=== PATIENT | male | born 1960 | race Caucasian/White ===

== ENCOUNTER 2020-03-23 14:10 | Emergency (ER) | payer MEDICARE, MEDICAID, SELFPAY ==
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
[2020-03-23 14:25] VITALS: BP 146/85; PULSE 75; RESP 18; TEMP 36.6; O2SAT 99
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
--- NOTE | 2020-03-23 15:10 | PC.NURSE ---
Dr. Baugh speaking with Dr. Tao with [facility].
[2020-03-23] MEDS: CEPHALEXIN 500 MG CAPSULE PO (15:23)
== END 2020-03-23 15:35 | disposition home or self-care (01) ==
PROVIDERS: Emergency Provider Family Medicine
DX: S62.630B Displaced fracture of distal phalanx of right index finger, initial encounter for open fracture (principal); W22.8XXA Striking against or struck by other objects, initial encounter
CPT/HCPCS: 73140; 99283; A9270

== ENCOUNTER 2020-03-26 00:20 | Day surgery (SDC) | payer MEDICARE, MEDICAID, SELFPAY ==
[2020-03-24 15:48] VITALS: BMI 32.3
--- NOTE | ~2020-03-26 | XR_ITS ---
XR surgery orthopedic 03/26/2020 13:50 Indication: ORIF right index finger Procedure: 4 views right second finger Comparison: 03/23/2020 Findings: There has been interval placement of a surgical pin transfixing the second distal phalanx e xtending into the middle phalanx. Comminuted fracture distal aspect of the distal phalanx is an near- anatomic alignment. There is overlying soft tissue laceration. No foreign bodies. Impression: 1: Near-anatomic alignment of comminuted fracture right second distal phalanx status post internal fi xation with single fixation pin. Reviewed, dictated and finalized at location A. Impression: 1: Near-anatomic alignment of comminuted fracture right second distal phalanx s tatus post internal fixation with single fixation pin.
--- NOTE | 2020-03-26 11:12 | WPDANESEPPF ---
Anes - Initial Pre Proc Eval Procedure: Operation Date: 03/26/20 13:00 Proposed Procedures p Washout Repair And Nail Bed Repair Open Reduction Internal Fixation Right Index Finger Distal Phalanx - Abebe Tao MD Date/Time: 03/26/20 11:12 Surgeon: Abebe Tao MD Pre Op Diagnosis: Right Index Finger Fracture Patient Data Age: 59 Gender: M Height: 6 ft Weight: 108 kg Allergies Allergy/AdvReac Type Severity Reaction Status Date / Time No Known Allergies Allergy Verified 03/24/20 15:45 Home Medications Medication Instructions Recorded Confirmed Type lorazepam 0.5 mg tablet 0.25 mg PO Q6H PRN #20 tablet 10/30/19 03/26/20 Rx chlorthalidone 25 mg tablet 25 mg PO DAILY #30 tablet 03/09/20 03/26/20 Rx lisinopril 20 mg tablet 20 mg PO DAILY #30 tablet 03/09/20 03/26/20 Rx cephalexin 500 mg PO Q6H #28 cap 03/23/20 03/26/20 Rx Patient hx anesthesia problems: none Family hx anesthesia problems: none PMFSH Social History Social History Social History: Mr. Lou lives in [place], [place] with a roommate. He designates his friend, Emre, as his surrogate decision maker and he wishes to be a full code. He smoked up to 2 and half packs of cigarettes per day for 16 years and quit when he was diagnosed with throat cancer. He drinks 5-6 beers most days of the week. He denies drug use. He is on disability. His primary care provider is Dr. Ja Guidry. Smoking packs per day: 2.5 Smoking cigarettes per day: 50.0 Years smoked: 16 Smoking pack-years: 40.00 Alcohol intake: current Drinks per week: 35 Gender identity (if verbalized by the patient): Male Spiritual care concerns: No Anes - Eval Final PreProcedure Day of Procedure 03/26/20 11:12 Patient weight: overweight Heart: regular rate and rhythm Lungs: clear to auscultation Airway: Mallampati scale (h/o of laryngectomy) class II Neurological: alert and oriented Last oral intake: >/= 8 hours ASA classification: III Emergent: no Anesthetic plan: proceed Anesthesia type and monitoring: general GIVS and standard monitoring Informed Consent: The patient's anesthetic plan and its attendant risks and benefits were discussed with the patient/family/POA. Questions were solicited and answers provided to the satisfaction of the patient/family/POA.
[2020-03-26] MEDS: LACTATED RINGERS 1,000 ML 30 ML IV CONT (12:12)
[2020-03-26 12:22] VITALS: BP 114/74; PULSE 81; RESP 18; TEMP 37.2; O2SAT 99
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
--- NOTE | 2020-03-26 12:56 | PM.PROC ---
Procedure Note - Detailed Date of procedure: 03/26/20 Pre-op diagnosis: Right Index Finger Fracture Right index finger open wound Post-op diagnosis: same Procedure performed: 1. ORIF right index finger. 2. Nail bed repair right index finger. 3. 2cm laceration repair right index finger. 4. Washout right index finger. Description of procedure: He was marked in the preoperative holding area with his verification. We had obtained consent about the risks of COVID-19. He was taken to the operating room placed supine on the operating room table. Anesthesia was provided by anesthesiology. He was prepped and draped in a standard sterile fashion. 1% lidocaine and 0.25% Marcaine with epinephrine was used to provide a digital block. I was able to proceed without using tourniquet. I removed the nail plate from the nail bed. Completely clean this debrided. Washed with saline. The wound was explored and I copiously irrigated with normal saline solution and completely debrided. Fluoroscopy was used any did appear to have a distal fragment. Retrograde I crossed a 0.035 K-wire and then reduced the fracture as best as possible as there was the missing segment. This was then crossed proximally and then across the DIP joint in full extension. I verified positioning on fluoroscopy. The tissue was in very poor repair and I was able to repair the skin for 2 cm with 4-0 nylon and 5 0 chromic. This was reapproximating was still a small open area. I did a nail bed repair using 5 0 chromic. The nail was placed back into the eponychial fold and sutured into place with a 4-0 nylon. Xeroform, fluffs were used and lightly applied clean. I then used a metal finger splint with the digit in extension and placed a lightly applied 1 in Coban. He tolerated the procedure well. Awoke and taken to the PACU without difficulty. All instrument sponge counts were correct at the end the case.. Anesthesia: MAC Surgeon: Abebe Tao MD Estimated blood loss (mL): 1 Drains: No Packing: No Pathology: none sent Complications: No immediate complications Condition: stable Disposition: PACU
[2020-03-26] MEDS: ceFAZolin 2 GM/D5W 50 ML 2 GM/50 ML BAG IVPB (13:07)
--- NOTE | 2020-03-26 13:07 | SUR.PREOP ---
1245- asked Dr. Zarate if pt needed a repeat EKG day of surgery. pt has a EKG on file from 10/07. Dr. Zarate stated no reason to repeat.
[2020-03-26] MEDS: LIDO 1%/EPINEPHRINE 1:100,000 20 ML VIAL 4 ML INFILTRATE (13:57)
[2020-03-26 14:04] VITALS: BP 101/62; PULSE 63; RESP 12; TEMP 36.2; O2SAT 100
[2020-03-26 14:34] VITALS: BP 111/71; PULSE 74
--- NOTE | 2020-03-26 14:45 | SUR.PHASEII ---
4037- CALLED DR. MANTILLA ABOUT PAIN MEDICATION FOR PT. HE STATED PT FOLLOWS A PAIN MANAGEMENT MD FOR CHRONIC BACK PAIN. HE STATED HAVE PT TAKE IBUPROFEN AT HOME AND CALL PAIN MANAGEMENT DOCTOR TO FILL PAIN MEDICATIONS. UPDATED PT AND INSTRUCTIONS.
[2020-03-26 15:04] VITALS: BP 113/67; PULSE 66
== END 2020-03-26 15:20 | disposition home or self-care (01) ==
PROVIDERS: Visit Provider Surgery Plastic and Reconstructive Surgery
PROC: (CPT 26765; principal; 2020-03-26 13:00)
DX: S62.630A Displaced fracture of distal phalanx of right index finger, initial encounter for closed fracture (principal); W23.0XXA Caught, crushed, jammed, or pinched between moving objects, initial encounter; I10 Essential (primary) hypertension; E78.00 Pure hypercholesterolemia, unspecified; G89.4 Chronic pain syndrome; M54.9 Dorsalgia, unspecified; F41.1 Generalized anxiety disorder; Z87.891 Personal history of nicotine dependence; Z85.01 Personal history of malignant neoplasm of esophagus; Z79.891 Long term (current) use of opiate analgesic
CPT/HCPCS: 26765; 11730; C1713; J0690; J1100; J2250; J2405; J2704; J3010; J7030; J7120

== ENCOUNTER 2020-04-28 16:18 | Outpatient (CLI) | payer MEDICARE, MEDICAID, SELFPAY ==
--- NOTE | ~2020-04-28 | XR_ITS ---
EXAMINATION: XR finger 2nd RT min 2V DATE: 04/28/2020 16:46 INDICATION: Fracture of right hand second distal phalanx. TECHNIQUE: 4 views of right hand second digit were obtained. COMPARISON: Right hand second digit radiographs 03/23/2020, 03/26/2020 FINDINGS: There is a comminuted fracture of tuft of second distal phalanx. The main distal fracture f ragment demonstrates 2 mm distraction. No bridging bone. There is severe osteoarthritis of second dis jil interphalangeal joint and mild osteoarthritis of second metacarpophalangeal joint and proximal in terphalangeal joint. IMPRESSION: 1. Ununited comminuted fracture of second distal phalanx. 2. Polyarticular osteoarthritis. Reviewed, dictated and finalized at location A.
== END 2020-04-28 16:19 | disposition home or self-care (01) ==
PROVIDERS: PCP Family Medicine; Visit Provider Surgery Plastic and Reconstructive Surgery
DX: T14.8XXA Other injury of unspecified body region, initial encounter (principal); S62.630A Displaced fracture of distal phalanx of right index finger, initial encounter for closed fracture; M19.011 Primary osteoarthritis, right shoulder
CPT/HCPCS: 73140